=== PATIENT | male | born 1980 | race Two or more races ===

== ENCOUNTER 2023-12-15 22:55 | Emergency (ER) | payer OTHER ==
[~2023-12-15] VITALS: Ht 182.9 cm; Wt 109.9 kg
[2023-12-15] MEDS: NITROGLYCERIN 0.4 MG SL TAB SL ONE (23:30)
[2023-12-15 23:44] LABS: Basophils # (auto) 0.1 10 ^3/uL (0-0.2); Basophils % (auto) 0.9 % (0.0-2.0); Eosinophils # (auto) 0.1 10 ^3/uL (0-0.8); Eosinophils % (auto) 1.4 % (0.0-7.0); Hemoglobin 15.6 g/dL (13.5-17.5); Lymphocytes # (auto) 2.5 10 ^3/uL (0.4-5.4); Lymphocytes % (auto) 28.3 % (10.0-50.0); Mean Corpuscular Hemoglobin 29.1 pg (28.0-32.0); Mean Corpuscular Hgb Conc. 35.4 g/dL (32.0-36.0); Mean Corpuscular Volume 82.3 fL (80.0-100.0); Monocytes # (auto) 0.7 10 ^3/uL (0-1.3); Monocytes % (auto) 7.6 % (0.0-12.0); Neutrophils # (auto) 5.5 10 ^3/uL (1.6-8.6); Neutrophils % (auto) 61.8 % (37.0-80.0); Nucleated Red Blood Cells % 0.2 %; Platelet Count (auto) 201 10^3/uL (140-450); Red Blood Cells 5.34 10^6/uL (4.5-5.90); Red Cell Distribution Width 12.8 % (11.8-14.3)
[2023-12-15 23:50] VITALS: PULSE 77; RESP 15; O2SAT 96
[2023-12-15 23:54] LABS: Chloride 109 mmol/L (98-107); Potassium 3.8 mmol/L (3.5-5.1); Sodium 141 mmol/L (136-145)
[2023-12-15 23:55] LABS: Anion Gap 4 (5-15); Calcium 9.3 mg/dL (8.7-10.4); Carbon Dioxide 28 mmol/L (20-31)
[2023-12-16] LABS: BUN/Creatinine Ratio 8.1 (10.0-20.0); Blood Urea Nitrogen 8 mg/dL (9-23); Glucose 94 mg/dL (74-106)
[2023-12-16 00:01] LABS: Magnesium 2.2 mg/dL (1.6-2.6)
[2023-12-16] MEDS: ASPirin-EC 325mg tab PO ONE (00:38)
[2023-12-16 01:42] LABS: Urine Bacteria None Seen /hpf (None Seen)
[2023-12-16 01:54] LABS: Urine Blood Negative /uL (Negative); Urine Clarity Clear (Clear); Urine Color STRAW (Yellow); Urine Protein, UAD Negative (Negative); Urine Specific Gravity 1.006 (1.001-1.035); Urine Urobilinogen Normal (Negative); Urine WBC <1 /hpf (0 - 3)
[2023-12-16 02:04] LABS: Amphetamine Screen, Urine Neg (NEGATIVE); Barbiturate Scree,Urine Neg (NEGATIVE); Benzodiazephine Screen, Urine Neg (NEGATIVE); Cannabinoid Screen, Urine Neg (NEGATIVE); Cocaine Screen, Urine Neg (NEGATIVE); Opiate Scree,Urine Neg (NEGATIVE); Phencyclidine Screen, Urine Neg (NEGATIVE)
[2023-12-16 02:46] VITALS: BP 138/84; PULSE 78; RESP 16; TEMP 98.3; O2SAT 98
== END 2023-12-16 03:12 | disposition home or self-care (01) ==
LOC: ER 22:55
DX: I10 Essential (primary) hypertension (principal); R07.89 Other chest pain; Z90.89 Acquired absence of other organs; Z79.899 Other long term (current) drug therapy
CPT/HCPCS: 36415; 71045; 80048; 80307; 81001; 83735; 83880; 84484; 85025; 85379; 93005